=== PATIENT | female | born 1980 | race Caucasian/White ===

== ENCOUNTER 2019-06-30 18:14 | Emergency (ER) | payer BC, SELFPAY ==
[2019-06-30 18:19] VITALS: BP 129/95; PULSE 60; RESP 16; TEMP 36.6; O2SAT 97
--- NOTE | 2019-06-30 18:35 | ED.GENADUL_ITS ---
Discharge Plan Disposition Patient Disposition: HOME Condition: Improving Discharge Details Chief Complaint: Laceration Clinical Impression: Laceration of left thumb ED Provider: Clyde Wilson Home Meds and New Rx's Prescriptions: Continued levothyroxine [Synthroid] 150 mcg Tablet 150 mcg PO DAILY RF: 0 zolpidem [Ambien] 5 mg Tablet 5 mg PO HS PRNRF: 0 levonorgestrel-ethinyl estrad 0.15 mg-30 mcg (91) Tablets,Dose Pack,3 Month 1 tab PO DAILY RF: 0 Discharge Instructions Instructions: Laceration (ED) Additional Instructions: Your laceration was repaired with 4 interrupted, absorbable sutures. They will absorb and fall out over approximately 7 to 10 days time. Daily soap and water cleanse, pat dry, replace Band-Aid. Return or see Dr. Christine if you develop a fever, redness, foul-smelling discharge from the wound Medical Decision Making 38-year-old female with small laceration to the extensor surface of her left thumb without evidence of underlying tendon or nerve injury. Anesthetized, irrigated, examined in a bloodless field and closed with interrupted absorbable suture x4 with good wound apposition. Discussed with her that the flap may necrosis and fall off. She understands homecare, follow-up, return precautions.. HPI General Mode of arrival: ambulatory . Date/Time Provider Initiated Documentation: 06/30/19 18:22 . Limitations to Documentation: no limitations . Information obtained by: patient and family . History of Present Illness 38 year old F presents to the emergency department with the chief complaint of Left thumb laceration on extensor surface. No numbness or tingling. , described as moderate, Quality is described as constant, and is localized to the left and upper extremity. Patient reports no radiation. Patient started experiencing this hour(s) and it has been constant. No relieving factors improve symptom(s), No exacerbating factors reported . Patient did receive the following treatments prior to arrival, other (Dressing) Related Data Home Medications Medication Instructions Recorded Confirmed levonorgestrel-ethinyl estrad 1 tab PO DAILY 06/30/19 06/30/19 levothyroxine [Synthroid] 150 mcg PO DAILY 06/30/19 06/30/19 zolpidem [Ambien] 5 mg PO HS PRN 06/30/19 06/30/19 Allergies Allergy/AdvReac Type Severity Reaction Status Date / Time Sulfa (Sulfonamide AdvReac Other (See Unverified 06/30/19 18:23 Antibiotics) Comment) General Stated Complaint: Laceration PRIMITIVO: 4 Review of Systems Review of Systems Narrative: Tetanus up-to-date. No numbness or tingling. 4 systems reviewed and otherwise negative [facility] Medical History Graves disease (Acute) Hypothyroid (Chronic) Surgical History Hx of tonsillectomy (Chronic) Social History Smoking/Tobacco Use Status: Never Alcohol Intake: current Alcohol Intake frequency: holidays/special occasions only Drug use: Never Substance use type: does not use Do you feel safe at home: Yes Do you feel safe in your relationship?: Yes Exam Narrative Exam Narrative: GEN: awake, alert, oriented 3. Pleasant, well groomed, interactive. HEAD: Normocephalic, atraumatic ENT: Mucous membranes moist, oropharynx unremarkable, External ear exam unremarkable EYES: PERRL, EOMI EXT: Full ROM, no edema, no rash. 0.5 x 0.5 cm skin flap on the extensor surface of the proximal phalanx of thumb. Normal motor and sensory testing. Neuro: Grossly normal neurologic exam, conversant, interactive. Psych: Speech fluent, thoughts congruent, affect normal Course Vital Signs Vital signs: Vital Signs Temperature 36.6 C 06/30/19 18:19 Pulse 60 06/30/19 18:19 Respiratory Rate 16 06/30/19 18:19 Blood Pressure 129/95 H 06/30/19 18:19 Pulse Oximetry 97 06/30/19 18:19 Temperature 36.6 C 06/30/19 18:19 Temperature Source Skin 06/30/19 18:19 Pulse 60 06/30/19 18:19 Respiratory Rate 16 06/30/19 18:19 Respiratory Effort Non-Labored 06/30/19 18:25 Blood Pressure 129/95 H 06/30/19 18:19 Blood Pressure Position Sitting 06/30/19 18:19 Pulse Oximetry 97 06/30/19 18:19 Oxygen Delivery Method Room Air 06/30/19 18:19 Oxygen Flow Rate 0 09/15/19 18:19 Pain Level 0 06/30/19 18:19 Procedures Laceration Laceration 1: Site: hand Side (If applicable): left Size (cm): 1.5 Description: linear Depth: simple, single layer Local Anesthetic: Lidocaine 1% Amount of anesthesia used (mL): 1 Pre-repair: wound explored, irrigated extensively and deep structures intact Skin layer closed with: vicryl Size (cm): 5-0 Number of sutures: 4 Technique: simple, interrupted
[2019-06-30 19:00] VITALS: BP 129/95; PULSE 60; RESP 16; O2SAT 97
== END 2019-06-30 19:01 | disposition home or self-care (01) ==
PROVIDERS: Emergency Provider Emergency Medicine; PCP Family Medicine
DX: S61.012A Laceration without foreign body of left thumb without damage to nail, initial encounter (principal); W25.XXXA Contact with sharp glass, initial encounter; Y93.61 Activity, american tackle football
CPT/HCPCS: 12001

== ENCOUNTER 2022-05-20 18:05 | Emergency (ER) | payer BC, SELFPAY ==
[2022-05-20 18:10] VITALS: BP 111/82; PULSE 66; RESP 18; TEMP 36.7; O2SAT 100
--- NOTE | 2022-05-20 18:30 | DI.RAD_ITS ---
Exam(s) XR ELBOW LT COMPLETE EXAM: XR ELBOW LT COMPLETE CLINICAL HISTORY: elbow pain, recent bursitis. TECHNIQUE: 2D digital imaging was performed. Three views. COMPARISON: No exams were available for comparison FINDINGS: BONES: No acute fracture is present. No bony destructive lesion is seen. JOINTS: The elbow is normally aligned. No joint effusion is seen. SOFT TISSUE: Normal. IMPRESSION: Unremarkable radiographs of the left elbow. DATA REPOSITORY: RADIATION DOSE DELIVERED:
--- NOTE | 2022-05-20 18:41 | ED.GENADUL_ITS ---
Discharge Plan Disposition Patient Disposition: HOME Condition: Stable Discharge Details Chief Complaint: Cellulitis Clinical Impression: Elbow pain Primary Care Provider: Octavio Christine ED Provider: Ricardo Valencia Home Meds and New Rx's Prescriptions: No Action levothyroxine [Synthroid] 150 mcg Tablet 150 mcg PO DAILY zolpidem [Ambien] 5 mg Tablet 5 mg PO HS PRN levonorgestrel-ethinyl estrad 0.15 mg-30 mcg (91) Tablets,Dose Pack,3 Month 1 tab PO DAILY sertraline [Zoloft] 50 mg Tablet 50 mg PO DAILY Multi For Her 18 mg iron-600 mcg-80 mcg Tablet 1 tab PO DAILY Discharge Instructions Instructions: Elbow Bursitis (ED) Additional Instructions: Please return to the emergency department you develop pain swelling redness fevers inability in the elbow spreading redness chills or other signs of infection or worsening abnormal symptoms. Continue with ibuprofen and/or acetaminophen as needed for pain/swelling. Elevate and ice the elbow. Medical Decision Making 41-year-old female presents with 2 weeks of left elbow discomfort, was diagnosed with olecranon bursitis 2 weeks ago and given prophylactic antibiotic to be taken at bursa was worsening, bursitis was improving on its own over the past week and a half, has noted that ecchymosis is settled around the elbow and distal left extremity, range of motion full with both extension and flexion, strength intact soft compartments warm well perfused extremity, no appreciable olecranon bursa on examination however patient does have mild joint effusion to elbow joint with point tenderness medially and laterally. Likely resolving bursitis with residual joint effusion likely inflammatory versus overuse given using that arm a lot with young child versus must consider septic joint however less likely given afebrile nontoxic chronicity of discomfort full range of motion. Will obtain labs inflammatory markers x-ray, will attempt to ultrasound joint to assess for effusion size to see if it is amenable for aspiration. Will proceed with anti-inflammatory. Will likely refer to orthopedic surgery for close follow-up pending labs and imaging. 10: 32 patient resting comfortably no acute distress. Afebrile nontoxic full range of motion of elbow. Patient ultrasound showing no joint effusion. X-ray negative. Negative inflammatory markers, no white blood cell count. Very low suspicion for septic joint. Likely resolving traumatic bursitis less joint pain. Home care instructions and strict return precautions given for worsening signs or symptoms. Will be given orthopedic follow-up as needed HPI General Date/Time Provider Initiated Documentation: 05/20/22 18:14 . HPI Narrative: 41-year-old presents with left elbow discomfort for the past 2 weeks, had a large bursitis 2 weeks ago medical care as an outpatient and was given a prescription for Keflex however told not to take it unless symptoms are getting worse, bursitis improved slowly over the past 1-1/2 weeks patient noticed that her bruises settled over her elbow and forearm, range of motion is intact, denies fevers chills sweats still has some pain in the elbow, had a telehealth visit today and practitioner told her to come to the emergency department for evaluation. Denies any trauma. However has been holding young child with that arm for some time Related Data Home Medications Medication Instructions Recorded Confirmed levonorgestrel 0.15 mg-ethinyl 1 tab PO DAILY 06/30/19 06/30/19 estradiol 30 mcg tablets,3 mos pack(91) levothyroxine 150 mcg tablet 150 mcg PO DAILY 06/30/19 05/20/22 (Synthroid) zolpidem 5 mg tablet (Ambien) 5 mg PO HS PRN 06/30/19 05/20/22 [id number]-iron fum 18 1 tab PO DAILY 05/20/22 05/20/22 mg-folic 600 mcg-vit K 80 mcg tablet (Multi For Her) sertraline 50 mg tablet (Zoloft) 50 mg PO DAILY 05/20/22 05/20/22 Allergies Allergy/AdvReac Type Severity Reaction Status Date / Time Sulfa (Sulfonamide AdvReac Other (See Unverified 05/20/22 18:13 Antibiotics) Comment) General Stated Complaint: Cellulitis PRIMITIVO: 4 Review of Systems Narrative: Review of Systems Constitutional: negative Eyes: negative ENT: negative Cardiovascular: negative Respiratory: negative Gastrointestinal: negative : negative Musculoskeletal: Elbow pain Skin: negative Neurologic: negative Psych: negative PFSH All Active Problems (Updated 05/20/22 @ 20:34 by Ricardo Valencia MD) Elbow pain (Acute) Medical History (Updated 05/20/22 @ 20:34 by Ricardo Valencia MD) Graves disease Hypothyroid Surgical History Hx of tonsillectomy Social History Smoking/Tobacco Use Status: Never Smoking risk assessment performed?: Yes Alcohol Intake: current Alcohol Intake frequency: holidays/special occasions only Drug use: Never Substance use type: does not use Do you feel safe at home: Yes Do you feel safe in your relationship?: Yes Exam Narrative Exam Narrative: Physical Examination General: alert, awake, cooperative, resting comfortably, no acute distress HEENT: normocephalic, atraumatic; PERRL, EOM intact, conjunctiva normal; no nasal discharge; moist mucous membranes, oral and pharyngeal mucosa normal, tolerating secretions Neck: supple, trachea midline; full ROM Chest: normal to inspection Respiratory: normal respiratory effort, speaking in full sentences, clear to auscultation, no wheezing, rales or rhonchi Cardiac: regular rate, regular rhythm, S1S2 intact, no murmurs rubs or gallops GI: abdomen soft, non-tender, non-distended; no palpable mass or hepatosplenomegaly Skin: Subacute appearing ecchymosis settling around elbow into forearm of left upper extremity, no crepitus, no bulla, no warmth Neuro: AAOx3, normal speech, moving all extremities Extremities: Full flexion extension of left elbow, minimal joint effusion, tender at both lateral and medial aspect of joint space, no crepitus no deformity, no olecranon bursa inflammation appreciated proximal and distal motor function of limb intact, warm well perfused, sensate extremity Psych: Appropriate mood and affect Course Vital Signs Vital signs: Vital Signs Temperature 36.7 C 05/20/22 18:10 Pulse 66 05/20/22 18:10 Respiratory Rate 18 05/20/22 18:10 Blood Pressure 111/82 05/20/22 18:10 Pulse Oximetry 100 05/20/22 18:10 Temperature 36.7 C 05/20/22 18:10 Temperature Source Temporal Artery Scan 05/20/22 18:10 Pulse 66 05/20/22 18:10 Respiratory Rate 18 05/20/22 18:10 Respiratory Effort Non-Labored 05/20/22 18:15 Blood Pressure 111/82 05/20/22 18:10 Blood Pressure Position Sitting 05/20/22 18:10 Pulse Oximetry 100 05/20/22 18:10 Oxygen Delivery Method Room Air 05/20/22 18:10 Oxygen Flow Rate 0 05/20/22 18:10 Lab/Test Results Lab/Test Results: 05/20/22 18:36 Blood Blood Culture - Pending 05/20/22 18:36 Blood Blood Culture - Pending SILVIANO Have you Been Recently Intoxicated or Drunk Within the Last 30 days?: No Have you Ever Experienced Previous Episodes of Alcohol Withdrawal?: No Have you ever Experienced Withdrawal Seizures?: No Have you ever Experienced Delirium Tremens(DT)s?: No Have you ever undergone Alcohol Rehabilitation Treatment (i.e, inpt ot outpatient treatment programs)?: No Have you ever Experienced Blackouts?: No Have you ever Combined Alcohol with other Downers within the last 90 days?: No Have you ever Combined Alcohol with any other Substance of Abuse during the last 90 days?: No Positive Blood Alcohol level on Presentation? [PCS.BAL]: No Evidence of Increased Autonomic Activity (i.e. HR>120, tremor, sweating, agitation, nausea)?: No Result: 0
[2022-05-20] MEDS: Ketorolac 15 MG/ML VIAL IVP (19:26)
--- NOTE | 2022-05-20 19:37 | DI.VRAD_ITS ---
PROCEDURE INFORMATION: Exam: XR Left Elbow Exam date and time: 05/20/2022 7:14 PM Age: 41 years old Clinical indication: Pain; Elbow; Left TECHNIQUE: Imaging protocol: Radiologic exam of the Left elbow. Views: 3 or more views. COMPARISON: No relevant prior studies available. FINDINGS: Bones/joints: There is no evidence of acute fracture.There is no evidence of malalignment or dislocation. Soft tissues: Normal. IMPRESSION: There is no evidence of acute fracture.There is no evidence of malalignment or dislocation. Dictated and Authenticated by: Tran Simmons MD. Ordering:MATEO Silva MD
[2022-05-20 19:46] LABS: Abs Immature Grans 0.02 10^3/uL (0.0-0.06); Absolute Basophil Count 0.03 10^3/uL (0.0-0.2); Absolute Eosinophil Count 0.08 10^3/uL (0.0-0.7); Absolute Lymphocyte Count 2.17 10^3/uL (1.2-3.4); Absolute Monocyte Count 0.63 10^3/uL (0.1-0.8); Absolute Neutrophil Count 3.69 10^3/uL (1.2-6.7); Basophils % 0.5; Eosinophils % 1.2; HCT 40.5 % (36.0-46.0); HGB 13.9 g/dL (11.2-15.7); Immature Grans % 0.3; Lymphocytes % 32.8; MCH 32.3 pg (27.0-33.0); MCHC 34.3 % (32.0-36.0); MCV 94 fL (80-95); MPV 10.2 fL (8.0-11.0); Monocytes % 9.5; Neutrophils % 55.7; Platelet Count 250 10^3/uL (130-400); WBC 6.62 10^3/uL (4.4-10.8)
[2022-05-20 19:50] LABS: ESR 5 mm/hr (0-20)
[2022-05-20 20:00] LABS: ALT 46 U/L (14-59); AST 22 U/L (15-37); Albumin 4.2 g/dL (3.4-5.0); Alkaline Phosphatase 68 U/L (46-116); Anion Gap 7.9 mmol/L (3-11); BUN 14 mg/dL (7-18); Bilirubin, Total 0.3 mg/dL (0.2-1.0); C-Reactive Protein 0.11 mg/dL (0.0-0.3); CO2 26.1 mmol/L (21.0-32.0); CREATININE 0.7 mg/dL (0.55-1.02); Calcium 9.2 mg/dL (8.5-10.1); Chloride 101 mmol/L (98-107); Glucose 86 mg/dL (74-106); Potassium 3.7 mmol/L (3.5-5.1); Sodium 135 mmol/L (136-145)
[2022-05-20 20:39] VITALS: BP 109/82; PULSE 63; RESP 16; O2SAT 98
== END 2022-05-20 20:45 | disposition home or self-care (01) ==
PROVIDERS: Emergency Provider Emergency Medicine; PCP Family Medicine
DX: L03.114 Cellulitis of left upper limb (principal); R58 Hemorrhage, not elsewhere classified
CPT/HCPCS: 36415; 80053; 85652; 87040; 96374; 99284; 73080; 85025; 86140; J1885

== ENCOUNTER 2023-02-10 07:04 | Outpatient (CLI) | payer BC, SELFPAY | END 2023-02-10 07:05 | disposition home or self-care (01) | PROVIDERS: Visit Provider Dermatology | DX: L41.1 Pityriasis lichenoides chronica (principal) | CPT/HCPCS: 96900 ==

== ENCOUNTER 2023-02-13 07:27 | Outpatient (CLI) | payer BC, SELFPAY | END 2023-02-13 07:28 | disposition home or self-care (01) | LOC: PUVA 07:27 | PROVIDERS: Visit Provider Dermatology | DX: L41.1 Pityriasis lichenoides chronica (principal) | CPT/HCPCS: 96900 ==

== ENCOUNTER 2023-02-14 07:46 | Outpatient (CLI) | payer BC, SELFPAY | END 2023-02-14 07:47 | disposition home or self-care (01) | LOC: PUVA 07:46 | PROVIDERS: Visit Provider Dermatology | DX: L41.1 Pityriasis lichenoides chronica (principal) | CPT/HCPCS: 96900 ==

== ENCOUNTER 2023-02-17 07:18 | Outpatient (CLI) | payer BC, SELFPAY | END 2023-02-17 07:19 | disposition home or self-care (01) | LOC: PUVA 07:18 | PROVIDERS: Visit Provider Dermatology | DX: L41.1 Pityriasis lichenoides chronica (principal) | CPT/HCPCS: 96900 ==

== ENCOUNTER 2023-02-20 07:16 | Outpatient (CLI) | payer BC, SELFPAY | END 2023-02-20 07:17 | disposition home or self-care (01) | LOC: PUVA 07:16 | PROVIDERS: Visit Provider Dermatology | DX: L41.1 Pityriasis lichenoides chronica (principal) | CPT/HCPCS: 96900 ==

== ENCOUNTER 2023-02-21 07:09 | Outpatient (CLI) | payer BC, SELFPAY | END 2023-02-21 07:10 | disposition home or self-care (01) | LOC: PUVA 07:09 | PROVIDERS: Visit Provider Dermatology | DX: L41.1 Pityriasis lichenoides chronica (principal) | CPT/HCPCS: 96900 ==

== ENCOUNTER 2023-02-24 08:33 | Outpatient (CLI) | payer BC, SELFPAY | END 2023-02-24 08:34 | disposition home or self-care (01) | LOC: PUVA 08:33 | PROVIDERS: Visit Provider Dermatology | DX: L41.1 Pityriasis lichenoides chronica (principal) | CPT/HCPCS: 96900 ==

== ENCOUNTER 2023-02-27 07:17 | Outpatient (CLI) | payer BC, SELFPAY | END 2023-02-27 07:18 | disposition home or self-care (01) | LOC: PUVA 07:18 | PROVIDERS: Visit Provider Dermatology | DX: L41.1 Pityriasis lichenoides chronica (principal) | CPT/HCPCS: 96900 ==

== ENCOUNTER 2023-02-28 07:20 | Outpatient (CLI) | payer BC, SELFPAY | END 2023-02-28 07:21 | disposition home or self-care (01) | LOC: PUVA 07:20 | PROVIDERS: Visit Provider Dermatology | DX: L41.1 Pityriasis lichenoides chronica (principal) | CPT/HCPCS: 96900 ==

== ENCOUNTER 2023-03-03 07:13 | Outpatient (CLI) | payer BC, SELFPAY | END 2023-03-03 07:14 | disposition home or self-care (01) | LOC: PUVA 07:14 | PROVIDERS: Visit Provider Dermatology | DX: L41.1 Pityriasis lichenoides chronica (principal) | CPT/HCPCS: 96900 ==

== ENCOUNTER 2023-03-06 08:37 | Outpatient (CLI) | payer BC, SELFPAY | END 2023-03-06 08:38 | disposition home or self-care (01) | LOC: PUVA 08:37 | PROVIDERS: Visit Provider Dermatology | DX: L41.1 Pityriasis lichenoides chronica (principal) | CPT/HCPCS: 96900 ==

== ENCOUNTER 2023-03-07 07:10 | Outpatient (CLI) | payer BC, SELFPAY | END 2023-03-07 07:11 | disposition home or self-care (01) | LOC: PUVA 07:10 | PROVIDERS: Visit Provider Dermatology | DX: L41.1 Pityriasis lichenoides chronica (principal) | CPT/HCPCS: 96900 ==

== ENCOUNTER 2023-03-10 07:24 | Outpatient (CLI) | payer BC, SELFPAY | END 2023-03-10 07:25 | disposition home or self-care (01) | LOC: PUVA 07:25 | PROVIDERS: Visit Provider Dermatology | DX: L41.1 Pityriasis lichenoides chronica (principal) | CPT/HCPCS: 96900 ==

== ENCOUNTER 2023-03-14 07:34 | Outpatient (CLI) | payer BC, SELFPAY | END 2023-03-14 07:35 | disposition home or self-care (01) | LOC: PUVA 07:35 | PROVIDERS: Visit Provider Dermatology | DX: L41.1 Pityriasis lichenoides chronica (principal) | CPT/HCPCS: 96900 ==

== ENCOUNTER 2023-03-17 07:53 | Outpatient (CLI) | payer BC, SELFPAY | END 2023-03-17 07:54 | disposition home or self-care (01) | LOC: PUVA 07:53 | PROVIDERS: Visit Provider Dermatology | DX: L41.1 Pityriasis lichenoides chronica (principal) | CPT/HCPCS: 96900 ==

== ENCOUNTER 2023-03-20 07:24 | Outpatient (CLI) | payer BC, SELFPAY | END 2023-03-20 07:25 | disposition home or self-care (01) | LOC: PUVA 07:25 | PROVIDERS: Visit Provider Dermatology | DX: L41.1 Pityriasis lichenoides chronica (principal) | CPT/HCPCS: 96900 ==

== ENCOUNTER 2023-03-21 07:10 | Outpatient (CLI) | payer BC, SELFPAY | END 2023-03-21 07:11 | disposition home or self-care (01) | LOC: PUVA 07:10 | PROVIDERS: Visit Provider Dermatology | DX: L41.1 Pityriasis lichenoides chronica (principal) | CPT/HCPCS: 96900 ==

== ENCOUNTER 2023-03-27 07:48 | Outpatient (CLI) | payer BC, SELFPAY | END 2023-03-27 07:49 | disposition home or self-care (01) | LOC: PUVA 07:48 | PROVIDERS: Visit Provider Dermatology | DX: L41.1 Pityriasis lichenoides chronica (principal) | CPT/HCPCS: 96900 ==

== ENCOUNTER 2023-03-28 07:16 | Outpatient (CLI) | payer BC, SELFPAY | END 2023-03-28 07:17 | disposition home or self-care (01) | LOC: PUVA 07:16 | PROVIDERS: Visit Provider Dermatology | DX: L41.1 Pityriasis lichenoides chronica (principal) | CPT/HCPCS: 96900 ==

== ENCOUNTER 2023-03-31 07:15 | Outpatient (CLI) | payer BC, SELFPAY | END 2023-03-31 07:16 | disposition home or self-care (01) | LOC: PUVA 07:16 | PROVIDERS: Visit Provider Dermatology | DX: L41.1 Pityriasis lichenoides chronica (principal) | CPT/HCPCS: 96900 ==

== ENCOUNTER 2023-04-03 07:45 | Outpatient (CLI) | payer BC, SELFPAY | END 2023-04-03 07:46 | disposition home or self-care (01) | LOC: PUVA 07:45 | PROVIDERS: Visit Provider Dermatology | DX: L41.1 Pityriasis lichenoides chronica (principal) | CPT/HCPCS: 96900 ==

== ENCOUNTER 2023-04-04 07:10 | Outpatient (CLI) | payer BC, SELFPAY | END 2023-04-04 07:11 | disposition home or self-care (01) | LOC: PUVA 07:10 | PROVIDERS: Visit Provider Dermatology | DX: L41.1 Pityriasis lichenoides chronica (principal) | CPT/HCPCS: 96900 ==

== ENCOUNTER 2023-04-10 11:06 | Outpatient (CLI) | payer BC, SELFPAY | END 2023-04-10 11:07 | disposition home or self-care (01) | LOC: PUVA 11:06 | PROVIDERS: Visit Provider Dermatology | DX: L41.1 Pityriasis lichenoides chronica (principal) | CPT/HCPCS: 96900 ==

== ENCOUNTER 2023-04-11 09:13 | Outpatient (CLI) | payer BC, SELFPAY | END 2023-04-11 09:14 | disposition home or self-care (01) | LOC: PUVA 09:13 | PROVIDERS: Visit Provider Dermatology | DX: L41.1 Pityriasis lichenoides chronica (principal) | CPT/HCPCS: 96900 ==

== ENCOUNTER 2023-04-14 09:20 | Outpatient (CLI) | payer BC, SELFPAY | END 2023-04-14 09:21 | disposition home or self-care (01) | LOC: PUVA 09:22 | PROVIDERS: Visit Provider Dermatology | DX: L41.1 Pityriasis lichenoides chronica (principal) | CPT/HCPCS: 96900 ==

== ENCOUNTER 2023-04-21 11:25 | Outpatient (CLI) | payer BC, SELFPAY | END 2023-04-21 11:26 | disposition home or self-care (01) | LOC: PUVA 11:25 | PROVIDERS: Visit Provider Dermatology | DX: L41.1 Pityriasis lichenoides chronica (principal) | CPT/HCPCS: 96900 ==

== ENCOUNTER 2023-04-24 10:50 | Outpatient (CLI) | payer BC, SELFPAY | END 2023-04-24 10:51 | disposition home or self-care (01) | LOC: PUVA 10:50 | PROVIDERS: Visit Provider Dermatology | DX: L41.1 Pityriasis lichenoides chronica (principal) | CPT/HCPCS: 96900 ==

== ENCOUNTER 2023-05-01 07:34 | Outpatient (CLI) | payer BC, SELFPAY | END 2023-05-01 07:35 | disposition home or self-care (01) | LOC: PUVA 07:35 | PROVIDERS: Visit Provider Dermatology | DX: L41.1 Pityriasis lichenoides chronica (principal) | CPT/HCPCS: 96900 ==

== ENCOUNTER 2023-05-02 07:08 | Outpatient (CLI) | payer BC, SELFPAY | END 2023-05-02 07:09 | disposition home or self-care (01) | LOC: PUVA 07:08 | PROVIDERS: Visit Provider Dermatology | DX: L41.1 Pityriasis lichenoides chronica (principal) | CPT/HCPCS: 96900 ==

== ENCOUNTER 2023-05-05 07:25 | Outpatient (CLI) | payer BC, SELFPAY | END 2023-05-05 07:26 | disposition home or self-care (01) | LOC: PUVA 07:25 | PROVIDERS: Visit Provider Dermatology | DX: L41.1 Pityriasis lichenoides chronica (principal) | CPT/HCPCS: 96900 ==

== ENCOUNTER 2023-05-08 07:15 | Outpatient (CLI) | payer BC, SELFPAY | END 2023-05-08 07:16 | disposition home or self-care (01) | LOC: PUVA 07:15 | PROVIDERS: Visit Provider Dermatology | DX: L41.1 Pityriasis lichenoides chronica (principal) | CPT/HCPCS: 96900 ==

== ENCOUNTER 2023-05-09 07:01 | Outpatient (CLI) | payer BC, SELFPAY | END 2023-05-09 07:02 | disposition home or self-care (01) | LOC: PUVA 07:01 | PROVIDERS: Visit Provider Dermatology | DX: L41.1 Pityriasis lichenoides chronica (principal) | CPT/HCPCS: 96900 ==

== ENCOUNTER 2023-05-12 07:04 | Outpatient (CLI) | payer BC, SELFPAY | END 2023-05-12 07:05 | disposition home or self-care (01) | PROVIDERS: Visit Provider Dermatology | DX: L41.1 Pityriasis lichenoides chronica (principal) | CPT/HCPCS: 96900 ==

== ENCOUNTER 2023-05-29 09:47 | Outpatient (CLI) | payer BC, SELFPAY | END 2023-05-29 09:48 | disposition home or self-care (01) | LOC: PUVA 09:49 | PROVIDERS: Visit Provider Dermatology | DX: L41.1 Pityriasis lichenoides chronica (principal) | CPT/HCPCS: 96900 ==

== ENCOUNTER 2023-06-05 07:23 | Outpatient (CLI) | payer BC, SELFPAY | END 2023-06-05 07:24 | disposition home or self-care (01) | LOC: PUVA 07:23 | PROVIDERS: Visit Provider Dermatology | DX: L41.1 Pityriasis lichenoides chronica (principal) | CPT/HCPCS: 96900 ==

== ENCOUNTER 2023-06-09 07:19 | Outpatient (CLI) | payer BC, SELFPAY | END 2023-06-09 07:20 | disposition home or self-care (01) | LOC: PUVA 07:19 | PROVIDERS: Visit Provider Dermatology | DX: L41.1 Pityriasis lichenoides chronica (principal) | CPT/HCPCS: 96900 ==

== ENCOUNTER 2023-06-12 07:09 | Outpatient (CLI) | payer BC, SELFPAY | END 2023-06-12 07:10 | disposition home or self-care (01) | LOC: PUVA 07:09 | PROVIDERS: Visit Provider Dermatology | DX: L41.1 Pityriasis lichenoides chronica (principal) | CPT/HCPCS: 96900 ==

== ENCOUNTER 2023-06-16 07:24 | Outpatient (CLI) | payer BC, SELFPAY | END 2023-06-16 07:25 | disposition home or self-care (01) | LOC: PUVA 07:25 | PROVIDERS: Visit Provider Dermatology | DX: L41.1 Pityriasis lichenoides chronica (principal) | CPT/HCPCS: 96900 ==

== ENCOUNTER 2023-06-23 07:10 | Outpatient (CLI) | payer BC, SELFPAY | END 2023-06-23 07:11 | disposition home or self-care (01) | LOC: PUVA 07:10 | PROVIDERS: Visit Provider Dermatology | DX: L41.1 Pityriasis lichenoides chronica (principal) | CPT/HCPCS: 96900 ==

== ENCOUNTER 2023-06-26 07:08 | Outpatient (CLI) | payer BC, SELFPAY | END 2023-06-26 07:09 | disposition home or self-care (01) | LOC: PUVA 07:08 | PROVIDERS: Visit Provider Dermatology | DX: L41.1 Pityriasis lichenoides chronica (principal) | CPT/HCPCS: 96900 ==

== ENCOUNTER 2023-07-03 07:12 | Outpatient (CLI) | payer BC, SELFPAY | END 2023-07-03 07:13 | disposition home or self-care (01) | LOC: PUVA 07:13 | PROVIDERS: Visit Provider Dermatology | DX: L41.1 Pityriasis lichenoides chronica (principal) | CPT/HCPCS: 96900 ==

== ENCOUNTER 2023-07-07 14:27 | Outpatient (CLI) | payer BC, SELFPAY | END 2023-07-07 14:28 | disposition home or self-care (01) | LOC: PUVA 14:27 | PROVIDERS: Visit Provider Dermatology | DX: L41.1 Pityriasis lichenoides chronica (principal) | CPT/HCPCS: 96900 ==

== ENCOUNTER 2023-07-10 14:29 | Outpatient (CLI) | payer BC, SELFPAY | END 2023-07-10 14:30 | disposition home or self-care (01) | LOC: PUVA 14:29 | PROVIDERS: Visit Provider Dermatology | DX: L41.1 Pityriasis lichenoides chronica (principal) | CPT/HCPCS: 96900 ==

== ENCOUNTER 2023-07-14 07:27 | Outpatient (CLI) | payer BC, SELFPAY | END 2023-07-14 07:28 | disposition home or self-care (01) | LOC: PUVA 07:27 | PROVIDERS: Visit Provider Dermatology | DX: L41.1 Pityriasis lichenoides chronica (principal) | CPT/HCPCS: 96900 ==

== ENCOUNTER 2023-07-21 07:18 | Outpatient (CLI) | payer BC, SELFPAY | END 2023-07-21 07:19 | disposition home or self-care (01) | LOC: PUVA 07:19 | PROVIDERS: Visit Provider Dermatology | DX: L41.1 Pityriasis lichenoides chronica (principal) | CPT/HCPCS: 96900 ==

== ENCOUNTER 2023-07-24 07:22 | Outpatient (CLI) | payer BC, SELFPAY | END 2023-07-24 07:23 | disposition home or self-care (01) | LOC: PUVA 07:22 | PROVIDERS: Visit Provider Dermatology | DX: L41.1 Pityriasis lichenoides chronica (principal) | CPT/HCPCS: 96900 ==

== ENCOUNTER 2023-07-28 07:23 | Outpatient (CLI) | payer BC, SELFPAY | END 2023-07-28 07:24 | disposition home or self-care (01) | LOC: PUVA 07:24 | PROVIDERS: Visit Provider Dermatology | DX: L41.1 Pityriasis lichenoides chronica (principal) | CPT/HCPCS: 96900 ==

== ENCOUNTER 2023-07-31 07:12 | Outpatient (CLI) | payer BC, SELFPAY | END 2023-07-31 07:13 | disposition home or self-care (01) | LOC: PUVA 07:12 | PROVIDERS: Visit Provider Dermatology | DX: L41.1 Pityriasis lichenoides chronica (principal) | CPT/HCPCS: 96900 ==

== ENCOUNTER 2023-08-04 07:30 | Outpatient (CLI) | payer BC, SELFPAY | END 2023-08-04 07:31 | disposition home or self-care (01) | LOC: PUVA 07:31 | PROVIDERS: Visit Provider Dermatology | DX: L41.1 Pityriasis lichenoides chronica (principal) | CPT/HCPCS: 96900 ==

== ENCOUNTER 2023-08-07 07:24 | Outpatient (CLI) | payer BC, SELFPAY | END 2023-08-07 07:25 | disposition home or self-care (01) | LOC: PUVA 07:24 | PROVIDERS: Visit Provider Dermatology | DX: L41.1 Pityriasis lichenoides chronica (principal) | CPT/HCPCS: 96900 ==

== ENCOUNTER 2023-08-21 14:16 | Outpatient (CLI) | payer BC, SELFPAY | END 2023-08-21 14:17 | disposition home or self-care (01) | LOC: PUVA 14:17 | PROVIDERS: Visit Provider Dermatology | DX: L41.1 Pityriasis lichenoides chronica (principal) | CPT/HCPCS: 96900 ==